=== PATIENT | male | born 1975 | race Caucasian/White ===

== ENCOUNTER 2017-04-10 14:01 | Emergency (ER) | payer BC ==
[~2017-04-10] VITALS: Ht 182.9 cm; Wt 108.3 kg
[2017-04-10 14:27] VITALS: BP 143/91; PULSE 80; RESP 16; TEMP 98.3; O2SAT 96
[2017-04-10] MEDS ORDERED: ATEN25TA PO (14:46)
[2017-04-10] MEDS ORDERED: LISI-515 PO (14:46)
[2017-04-10] MEDS ORDERED: PRIL20TA2 (14:46)
--- NOTE | 2017-04-10 14:58 | PD ---
HPI Chief Complaint: Injury Time Seen by Provider: 14:51 Travel History International Travel<30 days: No Contact w/Intl Traveler<30days: No Traveled to known affect area: No History of Present Illness HPI Patient is a 41-year-old male here with complaint of left wrist pain. Patient is here on vacation. He denies any recent trauma, or specific injury from his recollection. He's not had 2 days of left dorsal wrist pain with slight amount of swelling.The pain is worse with flexion. He has not noticed any redness, warmth, fevers or chills. He denies any work or repetitive activity. No numbness or tingling. PFSH Past Medical History Cardiovascular Problems: Yes (HTN) Hypertension: Yes Past Surgical History Appendectomy: Yes Social History Alcohol Use: Yes (OCC) Tobacco Use: No Allergies-Medications (Allergen,Severity, Reaction): Coded Allergies: No Known Allergies (Unverified , 04/10/17) Reported Meds & Prescriptions Reported Meds & Active Scripts Active Reported Prilosec (Omeprazole Magnesium) 20 Mg Tab Lisinopril 20 Mg Tab 20 Mg PO DAILY Atenolol 25 Mg Tab 25 Mg PO DAILY Review of Systems Except as stated in HPI: all other systems reviewed are Neg Physical Exam Narrative GENERAL: Well-appearing male in no acute distress SKIN: Focused skin assessment warm/dry. HEAD: Normocephalic. EYES: No scleral icterus. No injection or drainage. ENT: Mucous membranes pink and moist. NECK: Supple CARDIOVASCULAR: Regular rate and rhythm. RESPIRATORY: No accessory muscle use. MUSCULOSKELETAL: Patient splinting left wrist against the torso. No obvious deformity though there is swelling over the dorsal carpal row. Patient does not have any tenderness to palpation of the bony anatomy within the hand, forearm. No snuffbox tenderness. He does have tenderness over the dorsal carpal row but not over the volar aspect. Patient is able to fully extend the wrist but flexion of the wrist reproduces his pain over the dorsal row. Capillary refill is intact. Strength intact. NEUROLOGICAL: Awake and alert. Normal speech. PSYCHIATRIC: Appropriate mood and affect; insight and judgment normal. Data Data Last Documented VS Vital Signs Date Time Temp Pulse Resp B/P Pulse Ox O2 Delivery O2 Flow Rate FiO2 04/10/17 14:27 98.3 80 16 143/91 96 Orders Wrist, Complete ([id number]) (6/9/17 ) Ketorolac Inj (Toradol Inj) (04/10/17 15:00) MDM Medical Decision Making Medical Screen Exam Complete: Yes Emergency Medical Condition: Yes Medical Record Reviewed: Yes Differential Diagnosis 41-year-old male here with right sided wrist pain. Differential includes sprain , fracture, dislocation, contusion. No evidence of infection Narrative Course Patient given IM Toradol. X-ray of the right wrist unremarkable. Patient given Velcro wrist splint for comfort and discharged home. Diagnosis Primary Impression: Left wrist sprain Qualified Code: S63.502A - Left wrist sprain, initial encounter Referrals: Primary Care Physician as needed Additional Instructions: Tylenol, ibuprofen, Aleve as needed for pain. I see affected area 20 minutes at a time 3-4 times daily. Velcro wrist splint as needed for comfort. Follow- up with primary care provider symptoms persist. Med/Other Pt SpecificInfo: No Change to Meds Disposition: 01 DISCHARGE HOME Condition: Stable Keren Harris MD Apr 10, 2017 14:58
[2017-04-10] MEDS ORDERED: KETOROLAC TROMETHAMINE 60 MG/2 ML (IM) VIAL IM ONE (15:00)
--- NOTE | 2017-04-10 15:21 | RADHPO ---
EXAM DATE/TIME: 04/10/2017 14:57 [facility] COMPARISON: No previous studies available for comparison. INDICATIONS : Left wrist pain. MEDICAL HISTORY : Hypertension. SURGICAL HISTORY : Appendectomy. ENCOUNTER: Initial ACUITY: 1 day PAIN SCORE: 8/10 LOCATION: Left wrist FINDINGS: Three view examination of the left wrist demonstrates no soft tissue swelling, dislocation, or fractu re. The carpal bones are in normal alignment. The joint spaces are maintained. Bony mineralization is normal. CONCLUSION: Normal examination for a patient of this age. Jadiel Dougherty MD FACR on April 10, 2017 at 15:19 Board Certified Radiologist. This report was verified electronically.
== END 2017-04-10 15:40 | disposition home or self-care (01) ==
LOC: PHEFT 14:01
DX: S63.502A Unspecified sprain of left wrist, initial encounter (principal); I10 Essential (primary) hypertension
CPT/HCPCS: 73110; 96372; 99284; J1885; L3908